=== PATIENT | male | born 2000 | race Caucasian/White ===

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

== ENCOUNTER 2025-03-15 12:29 | Inpatient (IN) | payer SELFPAY ==
--- NOTE | 2025-03-15 13:04 | P.CONHOSP_ITS ---
History of Present Illness Data of Consult Service Date: 03/15/25 Primary Care Provider: Susie Physician HPI Reason for consult: Medical management 24-year-old male with a past medical history of EtOH abuse sober 2 months, depression and anxiety and asthma, presented to the [facility] ED for new visual hallucinations and suicidal ideations. In the ED he tested positive for opioids, cannabis and cocaine. Likely the source of his leukocytosis, no evidence of infection. Comprehensive metabolic panel was within normal limits. EKG with normal sinus rhythm. Chest Xray negative. Patient reports history of seasonal allergies. We will repeat CBC in a.m., if still elevated we will recheck chest x-ray. Review of Systems Review of Systems: Denies any shortness of breath, chest pain, dizziness, lightheadedness, abdominal pain or discomfort, nausea vomiting or diarrhea PMFSH Social History Household Members: Significant Other Housing: Apartment Do you presently have visiting nurse or other home services: No Patient Tobacco Use Status: Current everyday Tobacco user Cigarette Packs Per Day: 4 Cigarettes Per Day: 80.0 e-Cigarette/Vaping Use: Currently Using Second Hand Smoke Exposure: No Meds Allergies Allergy/AdvReac Type Severity Reaction Status Date / Time No Known Allergies Allergy Verified 03/15/25 12:43 Active Medications: Current Medications Acetaminophen (Acetaminophen 325 Mg Tablet) 650 mg PO Q6H PRN PRN Reason: Headache/Pain, Scale 1-10 Al Hydroxide/Mg Hydroxide (Magnesium Hydrox/Alum Hydrox 30 Ml Oral.Susp) 30 ml PO Q6H PRN PRN Reason: Heartburn/Nausea Baclofen (Baclofen 10 Mg Tablet) 10 mg PO TID PRN PRN Reason: GERONIMO/opiate W/D symptoms Clonidine HCl (Clonidine Hcl 0.1 Mg Tablet) 0.1 mg PO TID PRN; Protocol PRN Reason: Opiate W/D symptoms Hydroxyzine HCl (Hydroxyzine Hcl 50 Mg Tablet) 50 mg PO Q6H PRN PRN Reason: mild anxiety Magnesium Hydroxide (Milk Of Magnesia 30 Ml Oral.Susp) 30 ml PO DAILY PRN PRN Reason: Constipation Nicotine (Nicotine 21 Mg Patch.Td24) 21 mg TRANSDERMA DAILY PRN PRN Reason: nicotine craving Nicotine Polacrilex (Nicotine Polacrilex 2 Mg Gum) 2 mg BUCCAL Q2H PRN PRN Reason: Nicotine Cravings Olanzapine (Olanzapine 5 Mg Tablet) 5 mg PO BID PRN PRN Reason: agitation Trazodone HCl (Trazodone Hcl 50 Mg Tablet) 50 mg PO BEDTIME MRX1 PRN PRN Reason: Insomnia Home Medications ?Medication ?Instructions ?Recorded ?Confirmed ?Last Taken ?Type No Known Home Meds 03/15/25 03/15/25 Un known History Physical Exam Vital Signs and Narrative: Alert and oriented X3, able to give good history. Quiet and cooperative Neuro: CN II-X11 intact, no deficits, visual acuity intact EYES: PERRLA, EOM intact ENT: Hearing intact, lips moist Cardiac: S1 S2 RRR, No ectopy Pulmonary: lungs clear to auscultation, No wheeze, No increased WOB. Abdominal: BS active in all 4 quadrants, no guarding or tenderness MSK: Strength 5/5 upper and lower extremities, ambulates with steady gait : Deferred Extremities: No edema in lower extremities Psych: mood stable, Quiet and cooperative. Skin: Warm and dry, Intact Assessment and Plan (1) Mild intermittent asthma: Qualifiers: Asthma complication type: uncomplicated Qualified Code(s): J45.20 - Mild intermittent asthma, uncomplicated Status: Acute Plan Anxiety/depression/psychosis/polysubstance use Treatment per psychiatric team Asthma/seasonal allergies Not in acute exacerbation. Patient uses albuterol inhaler as needed Takes Claritin, we will add Flonase Repeat CBC in a.m. if still elevated suggest repeat chest x-ray Recent chest x-ray negative at [facility] Leukocytosis thought to be related to cocaine use Thank you for allowing me to participate in the care of this patient. Signing off at this time. Please reconsult of any acute concerns or issues arise
--- OUTSIDE RECORDS SUMMARY | 2025-03-15 13:08 | XMS_ITS | Clinical Summary ---
Author Organization [facility] Address [address] [place] [phone] Phone Care Team Providers Care [place] Cold Meat Name Role Phone Physician, No Pcp Primary Care Provider Unavaila ble Allergies Active Allergy Reactions Criticality Noted Date Comments Pollen Extracts Asthma Medium 03/14/2025 Medications No known medications Active Problems No known active problems Encounters Date Type Department Care Team Description 03/14/2025 6:12 PM EDT - 03/15/2025 12:25 PM EDT Emergency [facility] Emergency [address] [place] [address] Comfort Ornelas MD Mersier, Jasmine, DO Hallucinations (Primary Dx); Suicidal ideation; Polysubstance abuse (CMS/HCC V24, CMS/HCC V28); Leukocytosis, unspecified type; Medical clearance for psychiatric admission Discharge Disposition: Another Health Care Institution Not Defined from Last 3 Months Medical History Medical History Date Comments Asthma Arthritis Depression Anxiety Social History Tobacco Use Types Packs/Day Years Used Date Smoking Tobacco: Never Smokeless Tobacco: Never Tobacco Cessation:Counseling Given: Not Answered Alcohol Use Standard Drinks/Week Comments Never 0 (1 standard drink = 0.6 oz pur e alcohol) Sex and Gender Information Value Date Recorded Sex Assigned at Male 09/03/2024 10:13 AM EST Legal Sex Male 4:35 AM EST Gender Identity Male 09/03/2024 10:13 AM EST Sexual Orientation Lesbian or Danielson 09/03/2024 10 :13 AM EST Obstetrics History Last Filed Vital Signs Vital Sign Reading Time Taken Comments Blood Pressure 138/75 03/15/2025 6:23 AM EDT Pulse 75 03/15/2025 6:23 AM EDT Temperature 37.1 C (98.8 F) 03/15/2025 6:23 AM EDT Respiratory Rate 18 03/15/2025 6:23 AM EDT Oxygen Saturation 99% 03/15/2025 6:23 AM EDT Inhaled Oxygen Concentration - - Weight 65.8 kg (145 lb) 03/14/2025 6:30 PM EDT Height 175.3 cm (5' 9 ) 03/14/2025 6:30 PM EDT Body Mass Index 21.41 03/14/2025 6:30 PM EDT Plan of Treatment Health Maintenance Due Date Last Done Comments Pneumococcal Vaccine: Pediatrics (0 to 5 Years) and At-Risk Patients (6 to 49 Years) (1 of 1 - PPSV23) 2008 08/01/2003, 04/10/2003, 2002 DTaP,Tdap,and Td Vaccines (6 - Tdap) 2013 05/24/2007, 10/02/2004, 08/01/2003, Additional history exists HPV Vaccines (1 - Male 3-dose series) 2017 Meningococcal B Vaccine (1 of 2 - Standard) 2018 Hepatitis A Vaccines (1 of 2 - Risk 2-dose series) 2021 HIV Screening 07/20/2022 Hepatitis C Screening 07/20/2022 Social Influencers of Health Screening 07/20/2022 COVID-19 Vaccine ( - season) 2024 12/11/2022, 01/12/2021, 12/22/2020 Depression Screening 08/17/2024 Influenza Vaccine (#1) 2025 Hepatitis B Vaccines Completed 04/10/2003, 2002, 2002 IPV Vaccines Completed 05/24/2007, 07/17, 04/10/2003, Additional history exists MMR Vaccines Completed 05/24/2007, 10/25/2003 Varicella Vaccines Completed 02/17/2008, 10/25/2003 HIB Vaccines Aged Out No longer eligi ble based on patient's age to complete this topic Meningococcal ACWY Vaccine Aged Out N o longer eligible based on patient's age to complete this topic RSV Immunization Patients Under 20 months Aged Out No longer eligible based on patient's age to complete this topic Procedures Procedure Name Priority Date/Time Associated Diagnosis Comments XR CHEST 2 VIEWS STAT 03/14/2025 7:54 PM EDT ECG 12-LEAD STAT 03/14/2025 7:45 PM EDT URINALYSIS WITH REFLEX MICROSCOPIC STAT 03/14/2025 7:32 PM EDT URINALYSIS WITH REFLEX MICROSCOPIC STAT 03/14/2025 7:32 PM EDT CBC WITH AUTO DIFFERENTIAL STAT 03/14/2025 6:34 PM EDT METHADONE SCREEN, URINE STAT 03/14/2025 6:34 PM EDT PHENCYCLIDINE, URINE STAT 03/14/2025 6:34 PM EDT BUPRENORPHINE SCREEN, URINE STAT 03/14/2025 6:34 PM EDT DRUG ABUSE SCREEN 8A PANEL, URINE STAT 03/14/2025 6:34 PM EDT SALICYLATE LEVEL STAT 03/14/2025 6:34 PM EDT ACETAMINOPHEN LEVEL STAT 03/14/2025 6 :34 PM EDT ETHANOL STAT 03/14/2025 6:34 PM EDT COMPREHENSIVE METABOLIC PANEL STAT 03/14/2025 6:34 PM EDT CBC AND DIFFERENTIAL STAT 03/14/2025 6:34 PM EDT from Last 3 Months Results * XR Chest 2 Views (03/14/2025 7:54 PM EDT) Anatomical Region Laterality Modality Body Radiographic Loree ging 03/15/2025 8:53 AM EDT Impressions 03/15/2025 8:54 AM EDT Impression: No active pulmonary process identified. Telesantiago DONALDSON ([id number]) -------- FINAL REPORT -------- Dictated By: Malu Marks Dictated Date: 03/15/2025 08:53 ET Assigned Physician: Malu Marks Reviewed and Electronically Signed By: Malu Marks Signed Date: 03/15/2025 08:54 ET Workstation ID: [id number] Transcribed By: Self Edit Transcribed Date: 03/15/2025 08:53 ET Narrative 03/15/2025 8:54 AM EDT History: Pneumonia. Comparison: No previous imaging at this institution. Findings: PA and lateral views. The cardiomediastinal silhouette, hilar contours and pulmonary vascularity are within normal limits. The lungs are clear. The costophrenic angles are sharp. A large right cervical rib is noted. Procedure Note Malu Marks MD - 03/15/2025 History: Pneumonia. Comparison: No previous imaging at this institution. Findings: PA and lateral views. The cardiomediastinal silhouette, hilar contours andpulmonary vascularity are within normal limits. The lungs are clear. Thecostophrenic angles are sharp. A large right cervical rib is noted. IMPRESSION: Impression: No active pulmonary process identified. Telerad MENDOZA ([id number]) -------- FINAL REPORT -------- Dictated By: Malu Marks Dictated Date: 03/15/2025 08:53 ET Assigned Physician: Malu Marks Reviewed and Electronically Signed By: Malu Marks Signed Date: 03/15/2025 08:54 ET Workstation ID: [id number] Transcribed By: Self Edit Transcribed Date: 03/15/2025 08:53 ET Yessi DONALDSON IMG XR PROCEDURES Final Result * (ABNORMAL) Urinalysis with reflex microscopic (03/14/2025 7:32 PM EDT) Specific [place] Urine 1.020 1.003 - 1.030 LAB URINALYSIS - AUTOMATED METHOD 03/14/2025 8:23 PM EDT [facility] pH, Urine 5.5 5.0 - 8.0 pH LAB URINALYSIS - AUTOMATED METHOD 03/14/2025 8:23 PM [facility] Leukocytes, Urine Negative Negative LAB URINALYSIS - AUTOMATED METHOD 03/14/2025 8:23 PM [facility] Nitrite, Urine Negative Negative LAB URINALYSIS - AUTOMATED METHOD 03/14/2025 8:23 PM [facility] Protein, Urine 300(A) <=Trace mg/dL LAB URINALYSIS - AUTOMATED METHOD 03/14/2025 8:23 PM [facility] Glucose, Urine Negative Negative mg/dL LAB URINALYSIS - AUTOMATED METHOD 03/14/2025 8:23 PM [facility] Ketones, Urine 15(A) Negative mg/dL LAB URINALYSIS - AUTOMATED METHOD 03/14/2025 8:23 PM [facility] Urobilinogen, Urine 1.0 0.2 - 1.0 mg/dL LAB URINALYSIS - AUTOMATED METHOD 03/14/2025 8:23 PM [facility] Bilirubin, Urine Negative Negative LAB URINALYSIS - AUTOMATED METHOD 03/14/2025 8:23 PM [facility] Blood, Urine Negative Negative LAB URINALYSIS - AUTOMATED METHOD 03/14/2025 8:23 PM [facility] RBC, Urine 1.2 0 - 4 /HPF LAB URINALYSIS - AUTOMATED METHOD 03/14/2025 8:23 PM [facility] WBC, Urine 3.8 0 - 4 /HPF LAB URINALYSIS - AUTOMATED METHOD 03/14/2025 8:23 PM [facility] Squamous Epithelial, Urine 32 0 - 60 /LPF LAB URINALYSIS - AUTOMATED METHOD 03/14/2025 8:23 PM [facility] Bacteria, Urine Negative Negative /HPF LAB URINALYSIS - AUTOMATED METHOD 03/14/2025 8:23 PM EDT [facility] Hyaline Casts, Urine 1.2 0 - 3 /LPF LAB URINALYSIS - AUTOMATED METHOD 03/14/2025 8:23 PM EDT [facility] Urine Urine specimen obtained by clean catch procedure / Unknown Non-blood Collection / Unknown 03/14/2025 7:32 PM EDT 03/14/2025 8:17 PM EDT Yessi DONALDSON LAB URINE ORDERABLES Fin al Result [facility] [address] [place] [address], [place] [phone] * (ABNORMAL) Drug abuse screen 8a panel, urine (03/14/2025 6:34 PM EDT) [facility] Amphetamine Screen, Ur Negative Negative LAB CHEMISTRY METHOD 5 7:37 PM EDT [facility] Comment:Certain OTC medicati ons containing ephedrine, phenylephrine, pseudoephedrine and phenylpropanolamine can cause false positive results. Barbiturate Screen, Ur Negative Negative LAB CHEMISTRY METHOD 5 7:37 PM EDT [facility] Benzodiazepine Screen, Ur Negative Negative LAB CHEMISTRY METHOD 5 7:37 PM EDT [facility] Cocaine Screen, Ur Positive(A ) Negative LAB CHEMISTRY METHOD 5 7:37 PM EDT [facility] Opiate Screen, Ur Positive(A ) Negative LAB CHEMISTRY METHOD 5 7:37 PM EDT [facility] Cannabinoid (THC) Screen, Ur Positive(A ) Negative LAB CHEMISTRY METHOD 5 7:37 PM [facility] Comment:Specimens from patie nts taking pantoprazole sodium (Protonix) have been shown to produce false positive results. Oxycodone Screen, Ur Negative Negative LAB CHEMISTRY METHOD 5 7:37 PM EDT [facility] Fentanyl, Ur Negative Negative LAB CHEMISTRY METHOD 7:37 PM EDT [facility] Urine Urine specimen obtained by clean catch procedure / Unknown Non-blood Collection / Unknown 03/14/2025 6:34 PM EDT 03/14/2025 6:44 PM EDT Narrative [facility] - 03/14/2025 7:37 PM EDT Assay cutoffs: Amphetamines 1000 ng/mL Barbiturates 200 ng/mL Benzodiazepines 200 ng/mL Cocaine 300 ng/mL Fentanyl 1 ng/mL Opiates 300 ng/mL Oxycodone 100 ng/mL THC 50 ng/mL Semi-quantitative assay for screening purposes only. Unconfirmed screening result should not be used for non-medical purposes. *ALTERNATE METHOD CONFIRMATION DONE UPON REQUEST ONLY* Jude Flores MD LAB URINE ORDERABLES Final Result Performing Organization Address [facility] de Phone Number [facility] [address] [place] [address], [place] [phone] * Buprenorphine screen, urine (03/14/2025 6:34 PM EDT) [facility] Buprenorphine Screen Urine Negative Negative LAB CHEMISTRY METHOD 03/14/2025 7:35 PM EDT [facility] Urine Urine specimen obtained by clean catch procedure / Unknown Non-blood Collection / Unknown 03/14/2025 6:34 PM EDT 03/14/2025 6:44 PM EDT Narrative [facility] - 03/14/2025 7:35 PM EDT Assay cutoff 5 ng/mL Semi-quantitative assay for screening purposes only. Unconfirmed screening result should not be used for non-medical purposes. *ALTERNATE METHOD CONFIRMATION DONE UPON REQUEST ONLY* Jude Flores MD LAB URINE ORDERABLES Final Result Performing Organization Address [facility]/ZIP Co de Phone Number [facility] [address] [place] [address], [place] [phone] * Methadone, urine (03/14/2025 6:34 PM EDT) [facility] Methadone Screen, Urine Negative Negative LAB CHEMISTRY METHOD 03/14/2025 7:37 PM EDT [facility] Comment: Assay cutoff 300 ng/mL Semi-quantitative assay for screening purposes only. Unconfirmed screening result should not be used for non-medical purposes. *ALTERNATE METHOD CONFIRMATION DONE UPON REQUEST ONLY* Urine Urine specimen obtained by clean catch procedure / Unknown Non-blood Collection / Unknown 03/14/2025 6:34 PM EDT 03/14/2025 6:44 PM EDT us Jude Flores MD LAB URINE ORDERABLES Final Result [facility] [address] [place] [address], * (ABNORMAL) CBC auto differential (03/14/2025 6:34 PM EDT) [facility] WBC 17.5(H) 4.8 - 10.8 K/mcL LAB HEMETOLOGY METHOD 03/14/2025 6:53 PM EDT [facility] RBC 4.60 4.50 - 5.50 M/mcL LAB HEMETOLOGY METHOD 03/14/2025 6:53 PM EDT [facility] Hemoglobin 12.6(L) 13.5 - 17.5 g/dL LAB HEMETOLOGY METHOD 03/14/2025 6:53 PM EDT [facility] Hematocrit 36.9(L) 42.0 - 54.0 % LAB HEMETOLOGY METHOD 03/14/2025 6:53 PM EDT [facility] MCV 80.6 79.0 - 98.0 FL LAB HEMETOLOGY METHOD 03/14/2025 6:53 PM EDT [facility] MCH 27.5 27.0 - 32.0 pcg LAB HEMETOLOGY METHOD 03/14/2025 6:53 PM EDT [facility] MCHC 34.1 32.0 - 37.0 g/dL LAB HEMETOLOGY METHOD 03/14/2025 6:53 PM EDT [facility] RDW 12.4 11.0 - 15.0 % LAB HEMETOLOGY METHOD 03/14/2025 6:53 PM EDT [facility] Platelets 286 130 - 400 K/mcL LAB HEMETOLOGY METHOD 03/14/2025 6:53 PM EDT [facility] MPV 10.8 7.0 - 11.0 FL LAB HEMETOLOGY METHOD 03/14[facility]2025 6[facility] NRBC 0.0 <1.0 % LAB HEMETOLOGY METHOD 03/14/2025 6:[facility] NRBC Absolute 0.00 <0.10 K/mcL LAB HEMETOLOGY METHOD 03/14/2025 6:53 PM EDT [facility] Neutrophils Relative 82.8 % LAB HEMETOLOGY METHOD 03/14/2025 6:[facility] Lymphocytes Relative 8.5 % LAB HEMETOLOGY METHOD 03/14/2025 6:53 PM [facility] Monocytes Relative 7.7 % LAB HEMETOLOGY METHOD 03/14/2025 6:53 [facility] Eosinophils Relative 0.2 % LAB HEMETOLOGY METHOD 03/14/2025 6:53 PM [facility] Basophils Relative 0.3 % LAB HEMETOLOGY METHOD 03/14/2025 6:53 PM [facility] Immature Granulocytes Relative 0.5 % LAB HEMETOLOGY METHOD 03/14/2025 6:53 PM [facility] Neutrophils Absolute 14.48(H) 1.50 - 7.00 K/mcL LAB HEMETOLOGY METHOD 03/14/2025 6:53 PM EDT [facility] Lymphocytes Absolute 1.49 1.00 - 5.00 K[facility] LAB HEMETOLOGY METHOD 03/14/2025 6:53 PM EDT [facility] Monocytes Absolute 1.35(H) 0.20 - 1.00 K/[facility] LAB HEMETOLOGY METHOD 03/14/2025 6:53 PM EDT [facility] Eosinophils Absolute 0.04 0.00 - 0.50 [facility] LAB HEMETOLOGY METHOD 03/14/2025 6:53 PM EDT [facility] Basophils Absolute 0.06 0.00 - 0.20 K/[facility] LAB HEMETOLOGY METHOD 03/14/2025 6:53 PM EDT [facility] Immature Granulocytes Absolute 0.09(H) 0.00 - 0.03 K/[facility] LAB HEMETOLOGY METHOD 03/14/2025 6:53 PM EDT [facility] Blood Venous blood specimen / Unknown Venipuncture / Unknown 03/14/2025 6:34 PM EDT 03/14/2025 6:44 PM EDT Jude Flores MD LAB BLOOD ORDERABLES Final Result [facility] [address] [place] [address], * Phencyclidine, urine (03/14/2025 6:34 PM EDT) PCP Scrn, Ur Negative Negative LAB CHEMISTRY METHOD 03/14/2025 7:37 PM EDT [facility] Comment: Assay cutoff 25 ng/mL Semi-quantitative assay for screening purposes only. Unconfirmed screening result should not be used for non-medical purposes. *ALTERNATE METHOD CONFIRMATION DONE UPON REQUEST ONLY* Urine Urine specimen obtained by clean catch procedure / Unknown Non-blood Collection / Unknown 03/14/2025 6:34 PM EDT 03/14/2025 6:44 PM EDT Jude Flores MD LAB URINE ORDERABLES Final Result Performing Organization Address City/[facility]/ZIP Co de Phone Number [facility] [address] [place] [address], [place] [phone] * Ethanol (03/14/2025 6:34 PM EDT) Ethanol Level <3 0 - 10 mg/dL LAB CHEMISTRY METHOD 03/14/2025 7:34 PM EDT [facility] Blood Venous blood specimen / Unknown Venipuncture / Unknown 03/14/2025 6:34 PM EDT 03/14/2025 6:44 PM EDT Jude Flores MD LAB BLOOD ORDERABLES Final Result Performing Organization Address City/[facility]/ZIP Co de Phone Number [facility] [address] [place] [address], [place] [phone] * (ABNORMAL) Acetaminophen level (03/14/2025 6:34 PM EDT) Acetaminophen Level <2.0(L) 10.0 - 30.0 mcg/mL LAB CHEMISTRY METHOD 03/14/2025 7:39 PM EDT [facility] Blood Venous blood specimen / Unknown Venipuncture / Unknown 03/14/2025 6:34 PM EDT 03/14/2025 6:44 PM EDT Jude Flores MD LAB BLOOD ORDERABLES Final Result Performing Organization Address City/[facility]/ZIP Co de Phone Number [facility] [address] [place] [address], [place] [phone] * (ABNORMAL) Salicylate level (03/14/2025 6:34 PM EDT) Salicylate Level <1.7(L) 2.0 - 29.0 mg/dL LAB CHEMISTRY METHOD 03/14/2025 7:34 PM EDT [facility] Blood Venous blood specimen / Unknown Venipuncture / Unknown 03/14/2025 6:34 PM EDT 03/14/2025 6:44 PM EDT Jude Flores MD LAB BLOOD ORDERABLES Final Result [facility] [address] [place] [address], * Comprehensive metabolic panel (03/14/2025 6:34 PM EDT) [facility] Sodium 136 133 - 145 mmol/L LAB CHEMISTRY METHOD 03/14/2025 7:35 PM [facility] Potassium 3.9 3.5 - 5.5 mmol/L LAB CHEMISTRY METHOD 03/14/2025 7:35 PM [facility] Chloride 105 96 - 110 mmol/L LAB CHEMISTRY METHOD 03/14/2025 7:35 PM [facility] CO2 23 21 - 32 mmol/L LAB CHEMISTRY METHOD 03/14/2025 7:35 PM [facility] Anion Gap 8 3 - 11 LAB CHEMISTRY METHOD 03/14/2025 7:35 PM [facility] Glucose 88 70 - 100 mg/dL LAB CHEMISTRY METHOD 03/14/2025 7:35 PM [facility] BUN 12 5 - 25 mg/dL LAB CHEMISTRY METHOD 03/14/2025 7:35 PM [facility] Creatinine 1.19 0.70 - 1.30 mg/dL LAB CHEMISTRY METHOD 03/14/2025 7:35 PM [facility] eGFR 89 >=60 mL/min/1. 73m2 LAB CHEMISTRY METHOD 03/14/2025 7:35 PM EDT [facility] Comment:Calculation based on the Chronic Kidney Disease Epidemiology Collaboration (CKD-EPI) equation refit without adjustment for race. BUN/Creatinine Ratio 10.1 LAB CHEMISTRY METHOD 03/14/2025 7:35 PM [facility] Calcium 9.8 8.5 - 10.5 mg/dL LAB CHEMISTRY METHOD 03/14/2025 7:35 PM [facility] AST (SGOT) 24 10 - 42 unit/L LAB CHEMISTRY METHOD 03/14/2025 7:35 PM [facility] ALT (SGPT) 27 10 - 60 unit/L LAB CHEMISTRY METHOD 03/14/2025 7:35 PM [facility] Alkaline Phosphatase 95 42 - 121 unit/L LAB CHEMISTRY METHOD 03/14/2025 7:35 PM [facility] Total Protein 7.4 6.0 - 8.0 g/dL LAB CHEMISTRY METHOD 03/14/2025 7:35 PM [facility] Albumin 4.4 3.2 - 5.0 g/dL LAB CHEMISTRY METHOD 03/14/2025 7:35 PM [facility] Total Bilirubin 0.5 0.0 - 1.4 mg/dL LAB CHEMISTRY METHOD 03/14/2025 7:35 PM [facility] Blood Venous blood specimen / Unknown Venipuncture / Unknown 03/14/2025 6:34 PM EDT 03/14/2025 6:44 PM EDT us Jude Flores MD LAB BLOOD ORDERABLES Final Result [facility] [address] [place] [address], [place] [phone] from Last 3 Months Care Teams [place] [employer] Relationship Specialty Start Date End Date Physician, No Pcp PCP - General 09/03/24
[2025-03-15 13:09] VITALS: BP 168/88; PULSE 100; RESP 18; TEMP 36.3; O2SAT 95
[2025-03-15 15:00] VITALS: BMI 22.0
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
[2025-03-15] MEDS: Albuterol Sulfate 90 MCG 8 GM INHALER 2 PUFF INHALE (18:31)
--- NOTE | 2025-03-15 18:41 | PC.NURSE ---
Milan was admitted at 1238 to m3 on CV from [facility] for treatment of psychosis. According to pt he has been experiencing auditory and visual hallucinations for several weeks. For instance he thought he was playing hide and seek with his partner and cousin but later found he had been home alone. He reports he has been sober from alcohol for 2 months. He had recently used cocaine once at a [facility] and said he tested positive for fentanyl because they gave it to me at [facility] for my lung problems. Pt reports he has been using albuterol ( not prescribed) for his asthma but denies other physical complaint. Pt reports he used to smoke 4 ppd and now instead vapes a similar quantity. In addition he smokes and uses edible marijuana. On admission to the unit he is alert, fully oriented, calm, pleasant and cooperative with admission process. Mood is euthymic. Affect is cheerful. He endorses auditory and visual hallucinations. Intermittently throughout admission assessment he was notably attending to internal stimuli. Thought Process is disorganized. He denies ideation, plan or intent to harm self or others. Appetite is good. He denies recent weight loss or gain. Sleep is reportedly poor. I slept in the emergency room after I got ativan but I don't usually sleep. Focus is poor. Patient has no outpatient providers. He states his goal of admission is to get medicated so I can stop annoying people. Safety Checks are q 15 minutes.
[2025-03-15 20:00] VITALS: BP 146/72; PULSE 99; RESP 16; TEMP 36.6; O2SAT 100
[2025-03-15 21:49] VITALS: BP 142/80
[2025-03-16 07:00] VITALS: BMI 22.0
[2025-03-16 07:33] VITALS: BP 112/62; PULSE 80; RESP 20; TEMP 36.4; O2SAT 96
[2025-03-16 08:56] VITALS: BP 116/66
[2025-03-16] MEDS: Albuterol Sulfate 90 MCG 8 GM INHALER 2 PUFF INHALE (10:47)
[2025-03-16 10:49] LABS: MANUAL DIFF FLAG NO
[2025-03-16 10:53] LABS: Hematocrit 39.5 % (42.0-52.0); Hemoglobin 13.7 g/dl (14.0-18.0); Imm Gran Abs Auto 0.02 X10*3/uL (0.00-0.03); Imm Gran Pct Auto 0.3 % (0.0-0.4); Lymphocytes Absolute Auto 1.6 X10*3/uL (1.2-4.9); Mean Corpuscular HGB Conc 34.7 g/dl (31.0-36.0); Mean Corpuscular Hemoglobin 28.4 pg (27.0-33.0); Mean Corpuscular Volume 82.0 fL (80.0-98.0); NRBC Abs Auto 0.000 X10*3/uL (0.0-0.012); NRBC Pct Auto 0.0 /100WBC (0.0-0.2); Platelet Count 275 X10*3/uL (160-400); Red Blood Count 4.82 X10*6/uL (4.60-5.80); White Blood Count 6.4 X10*3/uL (4.8-10.8)
[2025-03-16 11:02] LABS: Hemoglobin A1C 108.5923 umol/L; Total Hemoglobin (HGBA1C) 3636.9395 umol/L
[2025-03-16 11:14] LABS: Alanine Aminotransferase 29 U/L (0-40); Albumin Level 4.4 g/dL (3.5-5.0); Alkaline Phosphatase 85 U/L (39-117); Anion Gap 11 (12-20); Aspartate Amino Transferase 26 U/L (5-37); Blood Urea Nitrogen 12 mg/dL (9-16); Calcium 9.0 mg/dL (8.4-10.2); Carbon Dioxide 25 mmol/L (22-29); Chloride 108 mmol/L (96-108); Cholesterol 126 mg/dL (<200); Creatinine Clr Calc Pharmacy 107.5; Estimated Glomerular Filt Rate > 60; HDL Cholesterol 45 mg/dL (>40); Potassium 4.4 mmol/L (3.3-5.1); Sodium 140 mmol/L (135-145); Total Protein 7.3 g/dL (6.5-8.0); Triglycerides 77 mg/dL (<150)
[2025-03-16 11:30] LABS: Free T4 (Free Thyroxine) 0.97 ng/dL (0.71-1.85); Thyroid Stimulating Hormone 0.48 uIU/mL (0.32-4.0)
--- NOTE | 2025-03-16 12:47 | HO.PSYCHPN ---
Subjective Subjective Date of Service: 03/16/25 Reason For Visit: psychosis Subjective Notes: 3 Day Interim History: Active on unit. social with peers. medication compliant. patient reports feeling depressed d/t being in the hospital. focused on discharge. 3 day up on 03/20/25. Patient reports he is no longer having hallucinations. denies SI/HI/VH/AH. He reports sleeping well. Continue current tx plan. Medication Compliance: Yes Side effects from medications: No Attending Groups: Yes Mental Status Exam Mental Status Exam Narrative: Pt is alert and oriented; behavior is cooperative and calm; dressed in casual attire; mood is described as depressed ; eye contact appropriate; Speech is normal rate, volume and not pressured; thought process is organized; Thought content is on discharge; denies SI/HI/VH/AH. Diagnostics Vital Signs (24Hr): Vital Signs - 24 hr 03/15/25 13:09 03/15/25 20:00 03/15/25 21:49 Temperature 97.3 F 97.9 F Pulse Rate 100 99 Respiratory Rate 18 16 Blood Pressure 168/88 H 146/72 H 142/80 H Pulse Oximetry 95 100 Oxygen Delivery Method Room Air Room Air 03/16/25 07:33 03/16/25 08:56 Temperature 97.5 F Pulse Rate 80 Respiratory Rate 20 Blood Pressure 112/62 116/66 Pulse Oximetry 96 Oxygen Delivery Method Room Air BMI result Body Mass Index 22.0 Labs 03/16/25 10:44 03/16/25 10:44 Labs: Laboratory Results - last 48 hr 03/16/25 10:44 WBC 6.4 RBC 4.82 Hgb 13.7 L Hct 39.5 L MCV 82.0 MCH 28.4 MCHC 34.7 RDW 12.6 Plt Count 275 MPV 10.9 Immature Gran % (Auto) 0.3 Neut % (Auto) 62.8 Lymph % (Auto) 25.3 [place] % (Auto) 7.7 Eos % (Auto) 2.8 Baso % (Auto) 1.1 Lymph # (Auto) 1.6 [place] # (Auto) 0.5 Eos # (Auto) 0.2 Baso # (Auto) 0.1 Abs Immat Gran (auto) 0.02 Absolute Neuts (auto) 4.0 Absolute Nucleated RBC 0.000 Nucleated RBC % (auto) 0.0 Sodium 140 Potassium 4.4 Chloride 108 Carbon Dioxide 25 Anion Gap 11 L BUN 12 Creatinine 1.03 Estim Creat Clear Calc 107.5 Estimated GFR > 60 Random Glucose 118 H Estimat Average Glucose 94 Hemoglobin A1c % 4.9 Calcium 9.0 Total Bilirubin 0.3 AST 26 ALT 29 Alkaline Phosphatase 85 Total Protein 7.3 Albumin 4.4 Triglycerides 77 Cholesterol 126 LDL Cholesterol, Calc 66 HDL Cholesterol 45 TSH 0.48 Free T4 0.97 Medications Medications Current Medications Acetaminophen (Acetaminophen 325 Mg Tablet) 650 mg PO Q6H PRN PRN Reason: Headache/Pain, Scale 1-10 Al Hydroxide/Mg Hydroxide (Magnesium Hydrox/Alum Hydrox 30 Ml Oral.Susp) 30 ml PO Q6H PRN PRN Reason: Heartburn/Nausea Albuterol Sulfate (Albuterol Sulfate 90 Mcg 8 Gm Inhaler) 2 puff INHALE RQ6H PRN PRN Reason: Shortness of Breath/Wheezing Last Admin: 03/16/25 10:47 Dose: 2 puff Baclofen (Baclofen 10 Mg Tablet) 10 mg PO TID PRN PRN Reason: GERONIMO/opiate W/D symptoms Clonidine HCl (Clonidine Hcl 0.1 Mg Tablet) 0.1 mg PO BID [facility]; Protocol Last Admin: 03/16/25 08:56 Dose: 0.1 mg Fluticasone Propionate (Fluticasone Propionate Nasal 16 Gm [place]) 1 spray NOSTRIL-B DAILY [facility] Last Admin: 03/16/25 08:58 Dose: 1 spray Hydroxyzine HCl (Hydroxyzine Hcl 50 Mg Tablet) 50 mg PO Q6H PRN PRN Reason: mild anxiety Loratadine (Loratadine 10 Mg Tablet) 10 mg PO DAILY [facility] Last Admin: 03/16/25 08:57 Dose: 10 mg Magnesium Hydroxide (Milk Of Magnesia 30 Ml Oral.Susp) 30 ml PO DAILY PRN PRN Reason: Constipation Nicotine (Nicotine 21 Mg Patch.Td24) 21 mg TRANSDERMA DAILY PRN PRN Reason: nicotine craving Nicotine Polacrilex (Nicotine Polacrilex 2 Mg Gum) 2 mg BUCCAL Q2H PRN PRN Reason: Nicotine Cravings Last Admin: 03/15/25 22:10 Dose: 2 mg Olanzapine (Olanzapine 5 Mg Tablet) 5 mg PO BID PRN PRN Reason: agitation Quetiapine Fumarate (Quetiapine Fumarate 50 Mg Tablet) 50 mg PO BEDTIME TANA Last Admin: 03/15/25 21:49 Dose: 50 mg Trazodone HCl (Trazodone Hcl 50 Mg Tablet) 50 mg PO BEDTIME MRX1 PRN PRN Reason: Insomnia Last Admin: 03/15/25 22:10 Dose: 50 mg Allergies Allergies Allergy/AdvReac Type Severity Reaction Status Date / Time No Known Allergies Allergy Verified 03/15/25 12:43 Assessment & Plan Assessment & Plan (1) Drug-induced psychotic disorder with hallucinations: Status: Acute Code(s): F19.951 - Other psychoactive substance use, unspecified with psychoactive substance-induced psychotic disorder with hallucinations (2) Bipolar disorder: Status: Acute Code(s): F31.9 - Bipolar disorder, unspecified Plan 24-year-old male with history of anxiety, depression, alcohol abuse (sober x2 months), and asthma is a transfer from [facility] ED to [facility] for visual hallucinations and suicidal ideation. On interview with this provider, patient notes that he has been experiencing visual hallucinations (seeing black shadows) and auditory hallucinations (hearing his name called by family members and friends who are not present) intermittently for the past 1-2 weeks. 2 days before he when to [facility] for visual hallucinations, he thought he was playing hide and seek with his boyfriend and cousin in the living room when in fact they were both in their basement. It was not until they came upstairs that he realized he was playing hide and seek with shadows. Afterwards, his visual hallucinations became more frequent and occurred daily. He notes that the auditory hallucinations are more frequent when he is experiencing visual hallucinations. Consequently, he decided to seek psychiatric evaluation with [facility] and was transferred to [facility] ED and subsequently [facility]. His last visual hallucinations was 3 days ago and auditory hallucinations was yesterday. He recalls that the onset of his auditory and visual hallucinations coincide with when he smoked cannabis, took fentanyl (Prescribed at [facility] during a recent hospitalization), and licked cocaine (for the very first and last time) at the same time. He notes that he smokes cannabis daily and has not drank alcohol for the past 2 months. He denies current use of illicit drugs. Recent UTox is positive for opiates, cannabis, and cocaine, per report. He denies history of SI/HI or current symptoms. He is currently experiencing severe anxiety and mild depression. He also reports poor sleep since childhood. Countless times, he has been sleepless for 1 week for the past several years. He will be energetic without sleep. The most he has slept in many years was for 2 hours here, before he was woken up by this provider. He notes that he is followed by [facility] and has a therapist and psychiatrist there; however, he has not been seen by his outpatient psychiatric providers since early October. He was also on escitalopram 10 mg daily and hydroxyzine 25 mg (1-2 cap) 3 times daily which he last took in October. During this admission, his goal is to have no hallucinations, be able to sleep, and have controlled anxiety and depression, so he can enjoy the things he loves. Formulation/Clinical reasoning: ? Drug-induced psychosis or bipolar disorder: It is unclear how much opiates and cocaine patient's uses. He may be using more illicit drugs than reported. He noted combined use of cocaine (for the first and last time) and fentanyl (prescribed), orally, and smoked cannabis 1-2 weeks which coincide with the onset of his symptoms. However, his recent UTox is positive for opiates, cocaine, and cannabis. It is also unclear if fentanyl was prescribed or not. If he is heavily using these drugs, he may be experiencing drug-induced psychosis; otherwise, bipolar 1 disorder is possible. He has not taken escitalopram and hydroxyzine since October; will hold escitalopram for now to prevent increase bipolar or drug-induced samia. No current withdrawal symptoms. Clonidine 0.1 mg 2 times daily ordered for anxiety and potential opiate withdrawal symptoms. Seroquel 50 mg at bedtime ordered for hallucinations and manic symptoms. Advised to take his medications as prescribed. Instructed on the risks, benefits, and potential adverse reactions of the medications. Verbalized understanding and agreed with the plan. Plan Admit to M5. CV 15 minutes check. Diagnostics as needed. Collateral contact. Continue remainder of regime. Encouraged full milieu. Discharge planning. Clonidine 0.1 mg 2 times daily ordered for anxiety and potential withdrawal symptoms. Seroquel 50 mg at bedtime ordered for hallucinations and manic symptoms. 03/16: Active on unit. social with peers. medication compliant. patient reports feeling depressed d/t being in the hospital. focused on discharge. 3 day up on 03/20/25. Patient reports he is no longer having hallucinations. denies SI/HI/VH/AH. He reports sleeping well. Continue current tx plan. Patient educated on: diagnosis and medication risk/benefits Reason for continued inpatient stay Substantial Risk for: med/psych decompensation Time Spent With Patient Time: Total time managing care of this patient today _20___ minutes.
[2025-03-16 20:18] VITALS: BP 122/60; PULSE 88; RESP 18; TEMP 36.3; O2SAT 99
[2025-03-17 07:33] VITALS: BP 106/56; PULSE 68; RESP 16; TEMP 36.4; O2SAT 100
[2025-03-17] MEDS: Nicotine 21 MG PATCH.TD24 TRANSDERMA (09:10)
[2025-03-17 09:11] VITALS: BP 133/60
--- NOTE | 2025-03-17 10:20 | P.PNPSI_ITS ---
Subjective Subjective Date of Service: 03/17/25 Reason For Visit: psychosis Subjective Notes: 3 Day Interim History: pt was found to have contraband; nicotine vape found next to him in bed. Pt reports he has been hiding it since admission. Nursing aware. Patient reports feeling fine ; denies SI/HI/VH/AH. 3 day notice up on 03/20/25. per nursing, slept 7 hours last night. Medication Compliance: Yes Side effects from medications: No Attending Groups: Yes Mental Status Exam Mental Status Exam Narrative: Pt is alert and oriented; behavior is cooperative and calm; dressed in casual attire; mood is described as good ; eye contact appropriate; Speech is normal rate, volume and not pressured; thought process is organized; Thought content is on discharge; denies SI/HI/VH/AH. Diagnostics Vital Signs (24Hr): Vital Signs - 24 hr 03/16/25 20:18 03/17/25 07:33 03/17/25 09:11 Temperature 97.3 F 97.5 F Pulse Rate 88 68 Respiratory Rate 18 16 Blood Pressure 122/60 106/56 L 133/60 Pulse Oximetry 99 100 Oxygen Delivery Method Room Air Room Air BMI result Body Mass Index 22.0 Labs 03/16/25 10:44 03/16/25 10:44 Labs: Laboratory Results - last 48 hr 03/16/25 10:44 WBC 6.4 RBC 4.82 Hgb 13.7 L Hct 39.5 L MCV 82.0 MCH 28.4 MCHC 34.7 RDW 12.6 Plt Count 275 MPV 10.9 Immature Gran % (Auto) 0.3 Neut % (Auto) 62.8 Lymph % (Auto) 25.3 [place] % (Auto) 7.7 Eos % (Auto) 2.8 Baso % (Auto) 1.1 Lymph # (Auto) 1.6 [place] # (Auto) 0.5 Eos # (Auto) 0.2 Baso # (Auto) 0.1 Abs Immat Gran (auto) 0.02 Absolute Neuts (auto) 4.0 Absolute Nucleated RBC 0.000 Nucleated RBC % (auto) 0.0 Sodium 140 Potassium 4.4 Chloride 108 Carbon Dioxide 25 Anion Gap 11 L BUN 12 Creatinine 1.03 Estim Creat Clear Calc 107.5 Estimated GFR > 60 Random Glucose 118 H Estimat Average Glucose 94 Hemoglobin A1c % 4.9 Calcium 9.0 Total Bilirubin 0.3 AST 26 ALT 29 Alkaline Phosphatase 85 Total Protein 7.3 Albumin 4.4 Triglycerides 77 Cholesterol 126 LDL Cholesterol, Calc 66 HDL Cholesterol 45 TSH 0.48 Free T4 0.97 Medications Medications Current Medications Acetaminophen (Acetaminophen 325 Mg Tablet) 650 mg PO Q6H PRN PRN Reason: Headache/Pain, Scale 1-10 Al Hydroxide/Mg Hydroxide (Magnesium Hydrox/Alum Hydrox 30 Ml Oral.Susp) 30 ml PO Q6H PRN PRN Reason: Heartburn/Nausea Albuterol Sulfate (Albuterol Sulfate 90 Mcg 8 Gm Inhaler) 2 puff INHALE RQ6H PRN PRN Reason: Shortness of Breath/Wheezing Last Admin: 03/16/25 10:47 Dose: 2 puff Baclofen (Baclofen 10 Mg Tablet) 10 mg PO TID PRN PRN Reason: GERONIMO/opiate W/D symptoms Clonidine HCl (Clonidine Hcl 0.1 Mg Tablet) 0.1 mg PO BID [facility]; Protocol Last Admin: 03/17/25 09:11 Dose: 0.1 mg Fluticasone Propionate (Fluticasone Propionate Nasal 16 Gm [place]) 1 spray NOSTRIL-B DAILY [facility] Last Admin: 03/17/25 09:12 Dose: 1 spray Hydroxyzine HCl (Hydroxyzine Hcl 50 Mg Tablet) 50 mg PO Q6H PRN PRN Reason: mild anxiety Loratadine (Loratadine 10 Mg Tablet) 10 mg PO DAILY [facility] Last Admin: 03/17/25 09:12 Dose: 10 mg Magnesium Hydroxide (Milk Of Magnesia 30 Ml Oral.Susp) 30 ml PO DAILY PRN PRN Reason: Constipation Nicotine (Nicotine 21 Mg Patch.Td24) 21 mg TRANSDERMA DAILY [facility] Last Admin: 03/17/25 09:10 Dose: 21 mg Nicotine Polacrilex (Nicotine Polacrilex 2 Mg Gum) 2 mg BUCCAL Q1H PRN PRN Reason: Nicotine Cravings Last Admin: 03/16/25 20:24 Dose: 2 mg Olanzapine (Olanzapine 5 Mg Tablet) 5 mg PO BID PRN PRN Reason: agitation Quetiapine Fumarate (Quetiapine Fumarate 50 Mg Tablet) 50 mg PO BEDTIME [facility] Last Admin: 03/16/25 20:21 Dose: 50 mg Trazodone HCl (Trazodone Hcl 50 Mg Tablet) 50 mg PO BEDTIME MRX1 PRN PRN Reason: Insomnia Last Admin: 03/17/25 02:19 Dose: 50 mg Allergies Allergies Allergy/AdvReac Type Severity Reaction Status Date / Time No Known Allergies Allergy Verified 03/15/25 12:43 Assessment & Plan Assessment & Plan (1) Drug-induced psychotic disorder with hallucinations: Status: Acute Code(s): F19.951 - Other psychoactive substance use, unspecified with psychoactive substance-induced psychotic disorder with hallucinations (2) Bipolar disorder: Status: Acute Code(s): F31.9 - Bipolar disorder, unspecified Plan 24-year-old male with history of anxiety, depression, alcohol abuse (sober x2 months), and asthma is a transfer from [facility] ED to [facility] for visual hallucinations and suicidal ideation. On interview with this provider, patient notes that he has been experiencing visual hallucinations (seeing black shadows) and auditory hallucinations (hearing his name called by family members and friends who are not present) intermittently for the past 1-2 weeks. 2 days before he when to [facility] for visual hallucinations, he thought he was playing hide and seek with his boyfriend and cousin in the living room when in fact they were both in their basement. It was not until they came upstairs that he realized he was playing hide and seek with shadows. Afterwards, his visual hallucinations became more frequent and occurred daily. He notes that the auditory hallucinations are more frequent when he is experiencing visual hallucinations. Consequently, he decided to seek psychiatric evaluation with [facility] and was transferred to [facility] ED and subsequently [facility] [place] [place] [facility]. His last visual hallucinations was 3 days ago and auditory hallucinations was yesterday. He recalls that the onset of his auditory and visual hallucinations coincide with when he smoked cannabis, took fentanyl (Prescribed at [facility] during a recent hospitalization), and licked cocaine (for the very first and last time) at the same time. He notes that he smokes cannabis daily and has not drank alcohol for the past 2 months. He denies current use of illicit drugs. Recent UTox is positive for opiates, cannabis, and cocaine, per report. He denies history of SI/HI or current symptoms. He is currently experiencing severe anxiety and mild depression. He also reports poor sleep since childhood. Countless times, he has been sleepless for 1 week for the past several years. He will be energetic without sleep. The most he has slept in many years was for 2 hours here, before he was woken up by this provider. He notes that he is followed by [facility] and has a therapist and psychiatrist there; however, he has not been seen by his outpatient psychiatric providers since early October. He was also on escitalopram 10 mg daily and hydroxyzine 25 mg (1-2 cap) 3 times daily which he last took in October. During this admission, his goal is to have no hallucinations, be able to sleep, and have controlled anxiety and depression, so he can enjoy the things he loves. Formulation/Clinical reasoning: ? Drug-induced psychosis or bipolar disorder: It is unclear how much opiates and cocaine patient's uses. He may be using more illicit drugs than reported. He noted combined use of cocaine (for the first and last time) and fentanyl (prescribed), orally, and smoked cannabis 1-2 weeks which coincide with the onset of his symptoms. However, his recent UTox is positive for opiates, cocaine, and cannabis. It is also unclear if fentanyl was prescribed or not. If he is heavily using these drugs, he may be experiencing drug-induced psychosis; otherwise, bipolar 1 disorder is possible. He has not taken escitalopram and hydroxyzine since October; will hold escitalopram for now to prevent increase bipolar or drug-induced samia. No current withdrawal symptoms. Clonidine 0.1 mg 2 times daily ordered for anxiety and potential opiate withdrawal symptoms. Seroquel 50 mg at bedtime ordered for hallucinations and manic symptoms. Advised to take his medications as prescribed. Instructed on the risks, benefits, and potential adverse reactions of the medications. Verbalized understanding and agreed with the plan. Plan Admit to M5. CV 15 minutes check. Diagnostics as needed. Collateral contact. Continue remainder of regime. Encouraged full milieu. Discharge planning. Clonidine 0.1 mg 2 times daily ordered for anxiety and potential withdrawal symptoms. Seroquel 50 mg at bedtime ordered for hallucinations and manic symptoms. 03/16: Active on unit. social with peers. medication compliant. patient reports feeling depressed d/t being in the hospital. focused on discharge. 3 day up on 03/20/25. Patient reports he is no longer having hallucinations. denies SI/HI/VH/AH. He reports sleeping well. Continue current tx plan. 03/17: pt was found to have contraband; nicotine vape found next to him in bed. Pt reports he has been hiding it since admission. Nursing aware. Patient reports feeling fine ; denies SI/HI/VH/AH. 3 day notice up on 03/20/25. per nursing, slept 7 hours last night.continue tx plan. Patient educated on: diagnosis and medication risk/benefits Reason for continued inpatient stay Substantial Risk for: med/psych decompensation Time Spent With Patient Time: Total time managing care of this patient today _20___ minutes.
[2025-03-17 20:11] VITALS: BP 134/66; PULSE 92; TEMP 36.7; O2SAT 100
[2025-03-18 07:47] VITALS: BP 110/57; PULSE 69; RESP 14; TEMP 36.9; O2SAT 97
[2025-03-18] MEDS: Nicotine 21 MG PATCH.TD24 TRANSDERMA (08:36)
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
[2025-03-18 21:17] VITALS: BP 133/65; PULSE 88; RESP 16; TEMP 37; O2SAT 99
--- NOTE | 2025-03-18 23:08 | P.PNPSI_ITS ---
Subjective Subjective Date of Service: 03/18/25 Reason For Visit: psychosis Subjective Notes: 3 Day Healthcare Proxy: No Guardianship: No Medical Problems Affecting Mental Status: No Interim History: Medical record and nursing notes reviewed; case discussed during rounds with team/nursing staff, and met with patient for supportive therapy/psychoeducation, as well as medication management. Sleep and appetite are good. Release happier compared to yesterday. Social and visible. Denies safety concerns. Reports craving for nicotine. Boyfriend did not visit today is to working scheduled. Anxious earlier but denies it during assessment time as he talks to peers and calm himself down. He would love to be discharged on Thursday. Do not want to retracted 3 days Medication Compliance: Yes Side effects from medications: No Attending Groups: Yes Review of Systems Acute medical concerns: No Medical Review of Systems: unchanged Review of Systems Review of Systems Denies any shortness of breath, chest pain, dizziness, lightheadedness, abdominal pain or discomfort, nausea vomiting or diarrhea Yes all other systems are reviewed and are negative Mental Status Exam Mental Status Exam Narrative: Pt is alert and oriented; behavior is cooperative and calm; dressed in casual attire; mood is described as happier ; eye contact appropriate; Speech is normal rate, volume and not pressured; thought process is organized; Thought content is on discharge; denies SI/HI/VH/AH. Diagnostics Vital Signs (24Hr): Vital Signs - 24 hr 03/18/25 07:47 03/18/25 21:17 Temperature 98.5 F 98.6 F Pulse Rate 69 88 Respiratory Rate 14 16 Blood Pressure 110/57 L 133/65 Pulse Oximetry 97 99 Oxygen Delivery Method Room Air Room Air BMI result Body Mass Index 22.0 Labs 03/16/25 10:44 03/16/25 10:44 Medications Medications Current Medications Acetaminophen (Acetaminophen 325 Mg Tablet) 650 mg PO Q6H PRN PRN Reason: Headache/Pain, Scale 1-10 Al Hydroxide/Mg Hydroxide (Magnesium Hydrox/Alum Hydrox 30 Ml Oral.Susp) 30 ml PO Q6H PRN PRN Reason: Heartburn/Nausea Albuterol Sulfate (Albuterol Sulfate 90 Mcg 8 Gm Inhaler) 2 puff INHALE RQ6H PRN PRN Reason: Shortness of Breath/Wheezing Last Admin: 03/16/25 10:47 Dose: 2 puff Baclofen (Baclofen 10 Mg Tablet) 10 mg PO TID PRN PRN Reason: GERONIMO/opiate W/D symptoms Clonidine HCl (Clonidine Hcl 0.1 Mg Tablet) 0.1 mg PO BID [facility]; Protocol Last Admin: 03/18/25 22:03 Dose: 0.1 mg Fluticasone Propionate (Fluticasone Propionate Nasal 16 Gm [place]) 1 spray NOSTRIL-B DAILY [facility] Last Admin: 03/18/25 08:34 Dose: 1 spray Hydroxyzine HCl (Hydroxyzine Hcl 50 Mg Tablet) 50 mg PO Q6H PRN PRN Reason: mild anxiety Last Admin: 03/18/25 20:54 Dose: 50 mg Loratadine (Loratadine 10 Mg Tablet) 10 mg PO DAILY [facility] Last Admin: 03/18/25 08:34 Dose: 10 mg Magnesium Hydroxide (Milk Of Magnesia 30 Ml Oral.Susp) 30 ml PO DAILY PRN PRN Reason: Constipation Nicotine (Nicotine 21 Mg Patch.Td24) 21 mg TRANSDERMA DAILY [facility] Last Admin: 03/18/25 08:36 Dose: 21 mg Nicotine Polacrilex (Nicotine Polacrilex 2 Mg Gum) 2 mg BUCCAL Q1H PRN PRN Reason: Nicotine Cravings Last Admin: 03/18/25 22:07 Dose: 2 mg Olanzapine (Olanzapine 5 Mg Tablet) 5 mg PO BID PRN PRN Reason: agitation Quetiapine Fumarate (Quetiapine Fumarate 50 Mg Tablet) 50 mg PO BEDTIME [facility] Last Admin: 03/18/25 22:03 Dose: 50 mg Trazodone HCl (Trazodone Hcl 50 Mg Tablet) 50 mg PO BEDTIME MRX1 PRN PRN Reason: Insomnia Last Admin: 03/18/25 22:03 Dose: 50 mg Allergies Allergies Allergy/AdvReac Type Severity Reaction Status Date / Time No Known Allergies Allergy Verified 03/15/25 12:43 Assessment & Plan Assessment & Plan (1) Drug-induced psychotic disorder with hallucinations: Status: Acute Code(s): F19.951 - Other psychoactive substance use, unspecified with psychoactive substance-induced psychotic disorder with hallucinations (2) Bipolar disorder: Status: Acute Code(s): F31.9 - Bipolar disorder, unspecified Plan 24-year-old male with history of anxiety, depression, alcohol abuse (sober x2 months), and asthma is a transfer from [facility] ED to [facility] for visual hallucinations and suicidal ideation. On interview with this provider, patient notes that he has been experiencing visual hallucinations (seeing black shadows) and auditory hallucinations (hearing his name called by family members and friends who are not present) intermittently for the past 1-2 weeks. 2 days before he when to [facility] for visual hallucinations, he thought he was playing hide and seek with his boyfriend and cousin in the living room when in fact they were both in their basement. It was not until they came upstairs that he realized he was playing hide and seek with shadows. Afterwards, his visual hallucinations became more frequent and occurred daily. He notes that the auditory hallucinations are more frequent when he is experiencing visual hallucinations. Consequently, he decided to seek psychiatric evaluation with [facility] and was transferred to [facility] ED and subsequently [facility]. His last visual hallucinations was 3 days ago and auditory hallucinations was yesterday. He recalls that the onset of his auditory and visual hallucinations coincide with when he smoked cannabis, took fentanyl (Prescribed at [facility] during a recent hospitalization), and licked cocaine (for the very first and last time) at the same time. He notes that he smokes cannabis daily and has not drank alcohol for the past 2 months. He denies current use of illicit drugs. Recent UTox is positive for opiates, cannabis, and cocaine, per report. He denies history of SI/HI or current symptoms. He is currently experiencing severe anxiety and mild depression. He also reports poor sleep since childhood. Countless times, he has been sleepless for 1 week for the past several years. He will be energetic without sleep. The most he has slept in many years was for 2 hours here, before he was woken up by this provider. He notes that he is followed by [facility] and has a therapist and psychiatrist there; however, he has not been seen by his outpatient psychiatric providers since early October. He was also on escitalopram 10 mg daily and hydroxyzine 25 mg (1-2 cap) 3 times daily which he last took in October. During this admission, his goal is to have no hallucinations, be able to sleep, and have controlled anxiety and depression, so he can enjoy the things he loves. Formulation/Clinical reasoning: ? Drug-induced psychosis or bipolar disorder: It is unclear how much opiates and cocaine patient's uses. He may be using more illicit drugs than reported. He noted combined use of cocaine (for the first and last time) and fentanyl (prescribed), orally, and smoked cannabis 1-2 weeks which coincide with the onset of his symptoms. However, his recent UTox is positive for opiates, cocaine, and cannabis. It is also unclear if fentanyl was prescribed or not. If he is heavily using these drugs, he may be experiencing drug-induced psychosis; otherwise, bipolar 1 disorder is possible. He has not taken escitalopram and hydroxyzine since October; will hold escitalopram for now to prevent increase bipolar or drug-induced samia. No current withdrawal symptoms. Clonidine 0.1 mg 2 times daily ordered for anxiety and potential opiate withdrawal symptoms. Seroquel 50 mg at bedtime ordered for hallucinations and manic symptoms. Advised to take his medications as prescribed. Instructed on the risks, benefits, and potential adverse reactions of the medications. Verbalized understanding and agreed with the plan. Plan Admit to M5. CV 15 minutes check. Diagnostics as needed. Collateral contact. Continue remainder of regime. Encouraged full milieu. Discharge planning. Clonidine 0.1 mg 2 times daily ordered for anxiety and potential withdrawal symptoms. Seroquel 50 mg at bedtime ordered for hallucinations and manic symptoms. 03/16: Active on unit. social with peers. medication compliant. patient reports feeling depressed d/t being in the hospital. focused on discharge. 3 day up on 03/20/25. Patient reports he is no longer having hallucinations. denies SI/HI/VH/AH. He reports sleeping well. Continue current tx plan. 03/17: pt was found to have contraband; nicotine vape found next to him in bed. Pt reports he has been hiding it since admission. Nursing aware. Patient reports feeling fine ; denies SI/HI/VH/AH. 3 day notice up on 03/20/25. per nursing, slept 7 hours last night.continue tx plan. 03/18/25: Sleep and appetite are good. Release happier compared to yesterday. Social and visible. Denies safety concerns. Reports craving for nicotine. Boyfriend did not visit today is to working scheduled. Anxious earlier but denies it during assessment time as he talks to peers and calm himself down. He would love to be discharged on Thursday. Do not want to retracted 3 day. Continue with current plan. Patient educated on: diagnosis, medication risk/benefits, substance abuse and therapeutic strategies Informed Consent: understands Reason for continued inpatient stay Substantial Risk for: med/psych decompensation Time Spent With Patient Time: Total time managing care of this patient today ____ minutes.
[2025-03-19 08:00] VITALS: BP 116/56; PULSE 68; RESP 16; TEMP 36.8; O2SAT 100
[2025-03-19] MEDS: Nicotine 21 MG PATCH.TD24 TRANSDERMA (08:21)
[2025-03-19 19:29] VITALS: BP 136/75; PULSE 99; RESP 16; TEMP 37.2; O2SAT 95
[2025-03-19 20:36] VITALS: BP 136/75
--- NOTE | 2025-03-19 21:35 | HO.PSYCHPN ---
Subjective Subjective Date of Service: 03/19/25 Reason For Visit: psychosis Subjective Notes: 3 Day Healthcare Proxy: No Guardianship: No Medical Problems Affecting Mental Status: No Interim History: Medical record and nursing notes reviewed; case discussed during rounds with team/nursing staff, and met with patient for supportive therapy/psychoeducation, as well as medication management. Reports slept well, but was sweating, feeling like he has nightmare. Feeling anxious at times but mi on depression. He would hope to be discharged tomorrow. Do not want to retract the 3 day. Visible, watching TV with peers, appropriate. Expecting the boyfriend coming to visit later on today. Has been requests hydroxyzine for anxiety. Very pleasant and cooperative. No safety concerns. Medication Compliance: Yes Side effects from medications: No Attending Groups: Yes Review of Systems Acute medical concerns: No Medical Review of Systems: unchanged Review of Systems Review of Systems Denies any shortness of breath, chest pain, dizziness, lightheadedness, abdominal pain or discomfort, nausea vomiting or diarrhea Yes all other systems are reviewed and are negative Mental Status Exam Mental Status Exam Narrative: Pt is alert and oriented; behavior is cooperative and calm; dressed in casual attire; mood is described as anxious regarding tomorrow discharge ; eye contact appropriate; Speech is normal rate, volume and not pressured; thought process is organized; Thought content is on discharge; denies SI/HI/VH/AH. Diagnostics Vital Signs (24Hr): Vital Signs - 24 hr 03/19/25 08:00 03/19/25 20:36 Temperature 98.2 F Pulse Rate 68 Respiratory Rate 16 Blood Pressure 116/56 L 136/75 Pulse Oximetry 100 Oxygen Delivery Method Room Air BMI result Body Mass Index 22.0 Labs 03/16/25 10:44 03/16/25 10:44 Medications Medications Current Medications Acetaminophen (Acetaminophen 325 Mg Tablet) 650 mg PO Q6H PRN PRN Reason: Headache/Pain, Scale 1-10 Al Hydroxide/Mg Hydroxide (Magnesium Hydrox/Alum Hydrox 30 Ml Oral.Susp) 30 ml PO Q6H PRN PRN Reason: Heartburn/Nausea Albuterol Sulfate (Albuterol Sulfate 90 Mcg 8 Gm Inhaler) 2 puff INHALE RQ6H PRN PRN Reason: Shortness of Breath/Wheezing Last Admin: 03/16/25 10:47 Dose: 2 puff Baclofen (Baclofen 10 Mg Tablet) 10 mg PO TID PRN PRN Reason: GERONIMO/opiate W/D symptoms Clonidine HCl (Clonidine Hcl 0.1 Mg Tablet) 0.1 mg PO BID [facility]; Protocol Last Admin: 03/19/25 20:36 Dose: 0.1 mg Fluticasone Propionate (Fluticasone Propionate Nasal 16 Gm [place]) 1 spray NOSTRIL-B DAILY [facility] Last Admin: 03/19/25 10:02 Dose: Not Given Hydroxyzine HCl (Hydroxyzine Hcl 50 Mg Tablet) 50 mg PO Q6H PRN PRN Reason: mild anxiety Last Admin: 03/19/25 13:15 Dose: 50 mg Loratadine (Loratadine 10 Mg Tablet) 10 mg PO DAILY [facility] Last Admin: 03/19/25 08:21 Dose: 10 mg Magnesium Hydroxide (Milk Of Magnesia 30 Ml Oral.Susp) 30 ml PO DAILY PRN PRN Reason: Constipation Nicotine (Nicotine 21 Mg Patch.Td24) 21 mg TRANSDERMA DAILY [facility] Last Admin: 03/19/25 08:21 Dose: 21 mg Nicotine Polacrilex (Nicotine Polacrilex 2 Mg Gum) 2 mg BUCCAL Q1H PRN PRN Reason: Nicotine Cravings Last Admin: 03/19/25 20:36 Dose: 2 mg Olanzapine (Olanzapine 5 Mg Tablet) 5 mg PO BID PRN PRN Reason: agitation Quetiapine Fumarate (Quetiapine Fumarate 50 Mg Tablet) 50 mg PO BEDTIME [facility] Last Admin: 03/19/25 20:36 Dose: 50 mg Trazodone HCl (Trazodone Hcl 50 Mg Tablet) 50 mg PO BEDTIME MRX1 PRN PRN Reason: Insomnia Last Admin: 03/19/25 20:36 Dose: 50 mg Allergies Allergies Allergy/AdvReac Type Severity Reaction Status Date / Time No Known Allergies Allergy Verified 03/15/25 12:43 Assessment & Plan Assessment & Plan (1) Drug-induced psychotic disorder with hallucinations: Status: Acute Code(s): F19.951 - Other psychoactive substance use, unspecified with psychoactive substance-induced psychotic disorder with hallucinations (2) Bipolar disorder: Status: Acute Code(s): F31.9 - Bipolar disorder, unspecified Plan 24-year-old male with history of anxiety, depression, alcohol abuse (sober x2 months), and asthma is a transfer from [facility] ED to [facility] for visual hallucinations and suicidal ideation. On interview with this provider, patient notes that he has been experiencing visual hallucinations (seeing black shadows) and auditory hallucinations (hearing his name called by family members and friends who are not present) intermittently for the past 1-2 weeks. 2 days before he when to [facility] for visual hallucinations, he thought he was playing hide and seek with his boyfriend and cousin in the living room when in fact they were both in their basement. It was not until they came upstairs that he realized he was playing hide and seek with shadows. Afterwards, his visual hallucinations became more frequent and occurred daily. He notes that the auditory hallucinations are more frequent when he is experiencing visual hallucinations. Consequently, he decided to seek psychiatric evaluation with [facility] and was transferred to [facility] ED and subsequently [facility]. His last visual hallucinations was 3 days ago and auditory hallucinations was yesterday. He recalls that the onset of his auditory and visual hallucinations coincide with when he smoked cannabis, took fentanyl (Prescribed at [facility] during a recent hospitalization), and licked cocaine (for the very first and last time) at the same time. He notes that he smokes cannabis daily and has not drank alcohol for the past 2 months. He denies current use of illicit drugs. Recent UTox is positive for opiates, cannabis, and cocaine, per report. He denies history of SI/HI or current symptoms. He is currently experiencing severe anxiety and mild depression. He also reports poor sleep since childhood. Countless times, he has been sleepless for 1 week for the past several years. He will be energetic without sleep. The most he has slept in many years was for 2 hours here, before he was woken up by this provider. He notes that he is followed by [facility] and has a therapist and psychiatrist there; however, he has not been seen by his outpatient psychiatric providers since early October. He was also on escitalopram 10 mg daily and hydroxyzine 25 mg (1-2 cap) 3 times daily which he last took in October. During this admission, his goal is to have no hallucinations, be able to sleep, and have controlled anxiety and depression, so he can enjoy the things he loves. Formulation/Clinical reasoning: ? Drug-induced psychosis or bipolar disorder: It is unclear how much opiates and cocaine patient's uses. He may be using more illicit drugs than reported. He noted combined use of cocaine (for the first and last time) and fentanyl (prescribed), orally, and smoked cannabis 1-2 weeks which coincide with the onset of his symptoms. However, his recent UTox is positive for opiates, cocaine, and cannabis. It is also unclear if fentanyl was prescribed or not. If he is heavily using these drugs, he may be experiencing drug-induced psychosis; otherwise, bipolar 1 disorder is possible. He has not taken escitalopram and hydroxyzine since October; will hold escitalopram for now to prevent increase bipolar or drug-induced samia. No current withdrawal symptoms. Clonidine 0.1 mg 2 times daily ordered for anxiety and potential opiate withdrawal symptoms. Seroquel 50 mg at bedtime ordered for hallucinations and manic symptoms. Advised to take his medications as prescribed. Instructed on the risks, benefits, and potential adverse reactions of the medications. Verbalized understanding and agreed with the plan. Plan Admit to M5. CV 15 minutes check. Diagnostics as needed. Collateral contact. Continue remainder of regime. Encouraged full milieu. Discharge planning. Clonidine 0.1 mg 2 times daily ordered for anxiety and potential withdrawal symptoms. Seroquel 50 mg at bedtime ordered for hallucinations and manic symptoms. 03/16: Active on unit. social with peers. medication compliant. patient reports feeling depressed d/t being in the hospital. focused on discharge. 3 day up on 03/20/25. Patient reports he is no longer having hallucinations. denies SI/HI/VH/AH. He reports sleeping well. Continue current tx plan. 03/17: pt was found to have contraband; nicotine vape found next to him in bed. Pt reports he has been hiding it since admission. Nursing aware. Patient reports feeling fine ; denies SI/HI/VH/AH. 3 day notice up on 03/20/25. per nursing, slept 7 hours last night.continue tx plan. 03/18/25: Sleep and appetite are good. Release happier compared to yesterday. Social and visible. Denies safety concerns. Reports craving for nicotine. Boyfriend did not visit today is to working scheduled. Anxious earlier but denies it during assessment time as he talks to peers and calm himself down. He would love to be discharged on Thursday. Do not want to retracted 3 day. Continue with current plan. 03/19/25: Reports slept well, but was sweating, feeling like he has nightmare. Feeling anxious at times but mi on depression. He would hope to be discharged tomorrow. Do not want to retract the 3 day. Visible, watching TV with peers, appropriate. Expecting the boyfriend coming to visit later on today. Has been requests hydroxyzine for anxiety. Very pleasant and cooperative. No safety concerns. Possible discharge on Thursday. Patient educated on: diagnosis, medication risk/benefits, substance abuse and therapeutic strategies Informed Consent: understands Reason for continued inpatient stay Substantial Risk for: med/psych decompensation Time Spent With Patient Time: Total time managing care of this patient today ____ minutes.
[2025-03-20 08:35] VITALS: BP 134/88; PULSE 75; RESP 18; TEMP 36.5; O2SAT 100
[2025-03-20 08:42] VITALS: BP 131/65
[2025-03-20] MEDS: Nicotine 21 MG PATCH.TD24 TRANSDERMA (08:44)
--- NOTE | 2025-03-20 10:20 | PM.PSYDC ---
DS: Providers Provider Date of Service: 03/20/25 Date of admission: 03/15/25 12:29 Date of discharge: 03/20/25 Primary care physician: Susie Physician Admitting clinician: Lyric Shultz Attending physician on admission: Rene Conklin Consults: 03/15/25 12:55 Consult to Hospitalist Routine Comment: Consulting Provider: [facility] Reason For Exam: New external admit- H&P 03/15/25 13:49 Addiction Medicine Provider Routine Consulting Provider: Addiction Covering Reason for consultation: current cocaine and fentanyl, hx etoh abuse, sober 2 months Attending physician on discharge: Rene Conklin Discharging clinician: Cecy Avila DS: Diagnosis Discharge Diagnosis (1) Drug-induced psychotic disorder with hallucinations: Status: Acute (2) Bipolar disorder: Status: Acute DS: Medications Discharge Medications Home Medications: Home Medications ?Medication ?Instructions ?Recorded ?Confirmed No Known Home Meds 03/15/25 03/15/25 Mental Status Exam Mental Status Exam Narrative: Pt is alert and oriented; behavior is cooperative and calm; dressed in casual attire; mood is described as good ; eye contact appropriate; Speech is normal rate, volume and not pressured; thought process is organized; Thought content is on discharge; denies SI/HI/VH/AH. Data Data Completed and Pending Completed studies during hospitalization [Text1]: 03/16/25 10:44 WBC 6.4 RBC 4.82 Hgb 13.7 L Hct 39.5 L MCV 82.0 MCH 28.4 MCHC 34.7 RDW 12.6 Plt Count 275 MPV 10.9 Immature Gran % (Auto) 0.3 Neut % (Auto) 62.8 Lymph % (Auto) 25.3 [place] % (Auto) 7.7 Eos % (Auto) 2.8 Baso % (Auto) 1.1 Lymph # (Auto) 1.6 [place] # (Auto) 0.5 Eos # (Auto) 0.2 Baso # (Auto) 0.1 Abs Immat Gran (auto) 0.02 Absolute Neuts (auto) 4.0 Absolute Nucleated RBC 0.000 Nucleated RBC % (auto) 0.0 Sodium 140 Potassium 4.4 Chloride 108 Carbon Dioxide 25 Anion Gap 11 L BUN 12 Creatinine 1.03 Estim Creat Clear Calc 107.5 Estimated GFR > 60 Random Glucose 118 H Estimat Average Glucose 94 Hemoglobin A1c % 4.9 Calcium 9.0 Total Bilirubin 0.3 AST 26 ALT 29 Alkaline Phosphatase 85 Total Protein 7.3 Albumin 4.4 Triglycerides 77 Cholesterol 126 LDL Cholesterol, Calc 66 HDL Cholesterol 45 TSH 0.48 Free T4 0.97 DS: Summary Hospital Course Hospital Course: 24-year-old male with history of anxiety, depression, alcohol abuse (sober x2 months), and asthma is a transfer from [facility] ED to [facility] for visual hallucinations and suicidal ideation. On interview with this provider, patient notes that he has been experiencing visual hallucinations (seeing black shadows) and auditory hallucinations (hearing his name called by family members and friends who are not present) intermittently for the past 1-2 weeks. 2 days before he when to [facility] for visual hallucinations, he thought he was playing hide and seek with his boyfriend and cousin in the living room when in fact they were both in their basement. It was not until they came upstairs that he realized he was playing hide and seek with shadows. Afterwards, his visual hallucinations became more frequent and occurred daily. He notes that the auditory hallucinations are more frequent when he is experiencing visual hallucinations. Consequently, he decided to seek psychiatric evaluation with [facility] and was transferred to [facility] ED and subsequently [facility]. His last visual hallucinations was 3 days ago and auditory hallucinations was yesterday. He recalls that the onset of his auditory and visual hallucinations coincide with when he smoked cannabis, took fentanyl (Prescribed at [facility] during a recent hospitalization), and licked cocaine (for the very first and last time) at the same time. He notes that he smokes cannabis daily and has not drank alcohol for the past 2 months. He denies current use of illicit drugs. Recent UTox is positive for opiates, cannabis, and cocaine, per report. He denies history of SI/HI or current symptoms. He is currently experiencing severe anxiety and mild depression. He also reports poor sleep since childhood. Countless times, he has been sleepless for 1 week for the past several years. He will be energetic without sleep. The most he has slept in many years was for 2 hours here, before he was woken up by this provider. He notes that he is followed by [facility] and has a therapist and psychiatrist there; however, he has not been seen by his outpatient psychiatric providers since early October. He was also on escitalopram 10 mg daily and hydroxyzine 25 mg (1-2 cap) 3 times daily which he last took in October. During this admission, his goal is to have no hallucinations, be able to sleep, and have controlled anxiety and depression, so he can enjoy the things he loves. Formulation/Clinical reasoning: ? Drug-induced psychosis or bipolar disorder: It is unclear how much opiates and cocaine patient's uses. He may be using more illicit drugs than reported. He noted combined use of cocaine (for the first and last time) and fentanyl (prescribed), orally, and smoked cannabis 1-2 weeks which coincide with the onset of his symptoms. However, his recent UTox is positive for opiates, cocaine, and cannabis. It is also unclear if fentanyl was prescribed or not. If he is heavily using these drugs, he may be experiencing drug-induced psychosis; otherwise, bipolar 1 disorder is possible. He has not taken escitalopram and hydroxyzine since October; will hold escitalopram for now to prevent increase bipolar or drug-induced samia. No current withdrawal symptoms. Clonidine 0.1 mg 2 times daily ordered for anxiety and potential opiate withdrawal symptoms. Seroquel 50 mg at bedtime ordered for hallucinations and manic symptoms. Advised to take his medications as prescribed. Instructed on the risks, benefits, and potential adverse reactions of the medications. Verbalized understanding and agreed with the plan. Plan Admit to M5. CV 15 minutes check. Diagnostics as needed. Collateral contact. Continue remainder of regime. Encouraged full milieu. Discharge planning. Clonidine 0.1 mg 2 times daily ordered for anxiety and potential withdrawal symptoms. Seroquel 50 mg at bedtime ordered for hallucinations and manic symptoms. Active on unit. social with peers. medication compliant. patient reports feeling depressed d/t being in the hospital. focused on discharge. 3 day up on 03/20/25. Patient reports he is no longer having hallucinations. denies SI/HI/VH/AH. He reports sleeping well. Continue current tx plan. pt was found to have contraband; nicotine vape found next to him in bed. Pt reports he has been hiding it since admission. Nursing aware. Patient reports feeling fine ; denies SI/HI/VH/AH. 3 day notice up on 03/20/25. per nursing, slept 7 hours last night.continue tx plan. Sleep and appetite are good. Release happier compared to yesterday. Social and visible. Denies safety concerns. Reports craving for nicotine. Boyfriend did not visit today is to working scheduled. Anxious earlier but denies it during assessment time as he talks to peers and calm himself down. He would love to be discharged on Thursday. Do not want to retracted 3 day. Continue with current plan. Reports slept well, but was sweating, feeling like he has nightmare. Feeling anxious at times but mi on depression. He would hope to be discharged tomorrow. Do not want to retract the 3 day. Visible, watching TV with peers, appropriate. Expecting the boyfriend coming to visit later on today. Has been requests hydroxyzine for anxiety. Very pleasant and cooperative. No safety concerns. Possible discharge on Thursday. Patient reports feeling good and ready for discharge ; denies SI/HI/VH/AH. Pt reports he plans on following up with outpatient providers. Status at Discharge Cognitive/behavioral status at discharge: Patient has insight and demonstrates good judgment in terms of wanting to pursue treatment. Patient has a safety plan that includes presenting to the closest ER or calling 911 if feeling unsafe. Functional status at discharge: independent ambulation Overall status at discharge: patient is back to baseline Time Spent with Patient Time attestation: Total time managing care of this patient today _20___ minutes. Time spent: Less than 30 minutes Discharge Plan Discharge Anticipated Discharge Date/Time: 03/20/25 11:00 Patient Disposition: Home, Self-Care Discharge Diagnosis: Bipolar d/o Referrals: [facility] [Other] - 1 Week Referral Note: Walk in hours are Thursday-Thursday 8am-8pm Please bring your discharge paperwork, ID and Insurance card. [facility] [Provider Group] - 1 Week Referral Note: [facility] was added to patients chart. Please call [phone] to schedule a follow up appt within 7-10 days of discharge. No release or pcp on file. Discharge Medications: New albuterol sulfate [Ventolin HFA] 90 mcg/actuation Hfa Aerosol Inhaler 2 puff inhalation RQ6H PRN (Reason: Shortness Of Breath/Wheezing) 30 Days Qty: 6.7 0RF clonidine HCl 0.1 mg Tablet 0.1 mg PO BID 30 Days Qty: 60 0RF Protocol: Hold for SBP< HOLD for SBP < : 90 quetiapine 50 mg Tablet 50 mg PO BEDTIME 30 Days Qty: 30 0RF hydroxyzine HCl 50 mg Tablet 50 mg PO TID PRN (Reason: mild anxiety) 30 Days Qty: 90 0RF Discharge Orders: Discharge Order (Routine); Ordered 03/20/25 Ordered By: Cecy Avila Diet: Regular diet Activity on Discharge: As tolerated Stand Alone Forms: Patient Portal Discharge page, Community Support Print Language: Citizen Of [place] Care Plan Goals: Maintain mood and safe behaviors Take medications as prescribed Continue to pursue sobriety Practice coping skills Continue with outpatient providers and reach out to them as needed Health Concerns: Mood stability and behaviors Sobriety Plan of Treatment: Follow up with your PCP, psychiatric provider and other outpatient providers regarding above concerns Take medications as prescribed Assessment: Patient has insight and demonstrates good judgment in terms of wanting to pursue treatment. Patient has a safety plan that includes presenting to the closest ER or calling 911 if feeling unsafe. Discharge Date/Time: 03/20/25 11:05
== END 2025-03-20 11:05 | disposition home or self-care (01) | DRG 885 ==
PROVIDERS: Nurse Practitioner Family; Nurse Practitioner Psychiatric/Mental Health; Admitting Provider Psychiatry & Neurology Psychiatry; Responsible Provider Registered Nurse; Visit Provider Psychiatry & Neurology Psychiatry
DX: F31.9 Bipolar disorder, unspecified (principal); F19.951 Other psychoactive substance use, unspecified with psychoactive substance-induced psychotic disorder with hallucinations; J45.20 Mild intermittent asthma, uncomplicated; F10.11 Alcohol abuse, in remission; F17.210 Nicotine dependence, cigarettes, uncomplicated; Z71.6 Tobacco abuse counseling; Z79.899 Other long term (current) drug therapy
CPT/HCPCS: 36415; 80053; 80061; 83036; 84439; 84443; 85025

== ENCOUNTER → 2025-03-15 12:29 | Outpatient (BNV) | payer OTHER, SELFPAY | PROVIDERS: Admitting Provider Psychiatry & Neurology Psychiatry; Visit Provider Nurse Practitioner Family | DX: F31.2 Bipolar disorder, current episode manic severe with psychotic features (principal); F19.951 Other psychoactive substance use, unspecified with psychoactive substance-induced psychotic disorder with hallucinations | CPT/HCPCS: 99231; 99232 ==

== ENCOUNTER → 2025-03-15 12:29 | Outpatient (BNV) | payer SELFPAY | PROVIDERS: Admitting Provider Psychiatry & Neurology Psychiatry; Visit Provider Nurse Practitioner Family | DX: J45.20 Mild intermittent asthma, uncomplicated (principal) | CPT/HCPCS: 99221 ==